=== PATIENT | female | born 1965 | race Caucasian/White ===

== ENCOUNTER 2024-05-23 12:43 | Emergency (ER) | payer MEDICAID ==
[~2024-05-23] VITALS: Ht 180.3 cm; Wt 59.1 kg
[2024-05-23 12:48] VITALS: TEMP 98.1
[2024-05-23 14:05] VITALS: BP 137/76; PULSE 80
--- NOTE | 2024-05-23 16:05 | NUR ---
Social service support for patient in ER with transportation request. SW contacted agency after confirming with patient for assistance to arrange transportation for patient home from ED. TIARA updated patient with reservation confirmation #[id number].
--- NOTE | 2024-05-23 16:25 | NUR ---
SW received notification that patient called and inquired about status of her transporation. Patient informed SW that it has been "too long of wait" and she contacted her neighbor and is coming to pick her up from ED now. TIARA offered to cancel her pending reservation, patient ok'd TIARA and thanked her for assistance with this matter. No further needs at this time.
== END 2024-05-23 14:06 | disposition home or self-care (01) ==
LOC: COL.ER 12:43
DX: T82.838A Hemorrhage due to vascular prosthetic devices, implants and grafts, initial encounter (principal); E11.22 Type 2 diabetes mellitus with diabetic chronic kidney disease; N18.6 End stage renal disease; Z99.2 Dependence on renal dialysis